=== PATIENT | male | born 1960 | race Caucasian/White ===

== ENCOUNTER 2018-11-23 00:48 | Emergency (ER) | payer MEDICARE ==
[~2018-11-23] VITALS: Ht 180.3 cm; Wt 95.0 kg
--- NOTE | 2018-11-23 00:55 | NUR ---
BIB [facility] FOR NOSE BLEED ON AND OFF FOR APPROX 7 DAYS. PT STATES HASN'T BEEN TAKING HIS BP MED. PT STATES BENT OVER AND NOSE STARTED BLEEDING LARGE AMOUNTS OF BLOOD VIA DONIS NOSTRILS. CLAMP IN PLACE, PT STILL HAS ACTIVE BLEEDING NOTED, SMALL AMOUNTS LEAKING THRU. CALL LIGHT IN REACH
[2018-11-23] MEDS ORDERED: OXYMETAZOLINE NASAL SPRAY 0.05%,30ML ONE (00:58)
[2018-11-23] MEDS ORDERED: LIDOCAINE 1%-EPI 1:100K, 20ML INFIL ONE (01:00)
[2018-11-23] MEDS ORDERED: OXYMETAZOLINE NASAL SPRAY 0.05%, 15ML NAS ONE (01:00)
[2018-11-23] MEDS ORDERED: LIDOCAINE 1%-EPI 1:100K, 20ML ONE (01:13)
--- NOTE | 2018-11-23 01:30 | NUR ---
MD AT CHAIR SIDE, PT IN NO DISTRESS
[2018-11-23] MEDS ORDERED: PANTOPRAZOLE 80 MG in SODIUM CHLORIDE 0.9% 100 ML IV SCH (02:03)
[2018-11-23] MEDS ORDERED: PANTOPRAZOLE 80 MG in SODIUM CHLORIDE 0.9% 50 ML IVPB ONE (02:03)
[2018-11-23] MEDS ORDERED: OCTREOTIDE 500 MCG in SODIUM CHLORIDE 0.9% 249 ML IV PRN (02:03)
[2018-11-23] MEDS ORDERED: PLEASE ENTER ALLERGIES MC SCH (02:30)
[2018-11-23] MEDS ORDERED: LORazepam 2 MG/ML, 1ML IVPush ONE (02:30)
[2018-11-23] MEDS ORDERED: OCTREOTIDE 100MCG/ML, 1ML (0.1MG/ML) IV ONE (02:30)
[2018-11-23] MEDS ORDERED: ONDANSETRON 2MG/ML, 2ML IVPush ONE (02:30)
--- NOTE | 2018-11-23 02:49 | NUR ---
CHECKED IF PT READY FOR DISCHARGE, HAS CLAMP BACK ON NOSE, STATES BLEEDING RESTARTED
[2018-11-23 03:11] VITALS: BP 136/86
--- NOTE | 2018-11-23 03:50 | NUR ---
Patient/Caregiver given discharge instructions and they have confirmed that they understand the instructions. Patient ambulatory with steady gait.
== END 2018-11-23 03:52 | disposition home or self-care (01) ==
LOC: ED 03:00
DX: R04.0 Epistaxis (principal)
CPT/HCPCS: 30901; 99284